=== PATIENT | female | born 1940 | race Caucasian/White ===

== ENCOUNTER 2016-05-04 10:44 | Outpatient (CLI) | payer MEDICARE, BC | END 2016-05-04 10:45 | disposition home or self-care (01) | DX: Z12.31 Encounter for screening mammogram for malignant neoplasm of breast (principal) ==

== ENCOUNTER 2016-07-07 07:21 | Outpatient (CLI) | payer MEDICARE, BC | END 2016-07-07 07:22 | disposition home or self-care (01) | DX: E78.5 Hyperlipidemia, unspecified (principal); R73.9 Hyperglycemia, unspecified; Z79.899 Other long term (current) drug therapy ==

== ENCOUNTER 2017-02-07 07:34 | Outpatient (CLI) | payer MEDICARE, BC ==
[2017-02-07 13:31] LABS: BASOPHILS # (AUTO) 0.1 10^3/uL (0.0-0.1); BASOPHILS % (AUTO) 1.4 %; EOSINOPHILS # (AUTO) 0.1 10^3/uL (0.0-0.7); HCT - HEMATOCRIT 39.4 % (37.0-47.0); HGB - HEMOGLOBIN 12.9 g/dL (12.0-16.0); LYMPHOCYTES # (AUTO) 1.6 10^3/uL (1.5-3.5); LYMPHOCYTES % (AUTO) 32.7 %; MEAN CORPUSCULAR HEMOGLOBIN 27.2 pg (27.0-31.0); MEAN CORPUSCULAR HGB CONC 32.8 g/dL (32.0-36.0); MEAN CORPUSCULAR VOLUME 82.9 fL (81.0-99.0); MEAN PLATELET VOLUME 8.2 fL (7.9-10.8); MONOCYTES # (AUTO) 0.4 10^3/uL (0.0-1.0); MONOCYTES % (AUTO) 8.8 %; NEUTROPHILS # (AUTO) 2.6 10^3/uL (1.5-6.6); NEUTROPHILS % (AUTO) 54.1 %; NUCLEATED RED BLOOD CELLS AUTO 0.1 /100WBC; RED BLOOD COUNT 4.75 10^6/uL (4.20-5.40); UNCORRECTED WHITE BLOOD COUNT 4.8 x10^3/uL; WHITE BLOOD COUNT 4.8 x10^3/uL (4.8-10.8)
[2017-02-07 13:46] LABS: ALBUMIN/GLOBULIN RATIO 1.3 (1.0-2.2); BILIRUBIN,TOTAL 0.6 mg/dL (0.2-1.0); BUN - BLOOD UREA NITROGEN 24 mg/dL (6-20); CALCIUM 8.9 mg/dL (8.5-10.3); CARBON DIOXIDE - CO2 24 mmol/L (21-32); CHLORIDE 110 mmol/L (101-111); CHOL/HDL RATIO 2.3 (<4.4); CHOLESTEROL 190 mg/dL; CREATININE 1.1 mg/dL (0.4-1.0); GFR - MDRD 48 (>89); GLUCOSE 95 mg/dL (70-100); HDL CHOLESTEROL 81 mg/dL; SODIUM 140 mmol/L (135-145); TRIGLYCERIDES 134 mg/dL; VLDL CHOLESTEROL 27 mg/dL
[2017-02-07 14:17] LABS: HEMOGLOBIN A1C 0.46 g/dL
== END 2017-02-07 07:35 | disposition home or self-care (01) ==
LOC: LAB.WCP 07:34
PROVIDERS: ATTEND Family Medicine
DX: R05 Cough (principal); R73.9 Hyperglycemia, unspecified; Z79.899 Other long term (current) drug therapy; D64.9 Anemia, unspecified; E78.5 Hyperlipidemia, unspecified; E55.9 Vitamin D deficiency, unspecified
CPT/HCPCS: 36415; 80053; 80061; 82306; 83036; 84443; 85025

== ENCOUNTER 2017-06-07 10:52 | Outpatient (CLI) | payer MEDICARE, BC ==
--- NOTE | 2017-06-08 12:24 | Mammography Report ---
DIGITAL SCREENING MAMMOGRAM; 06/07/2017 CLINICAL INDICATION: A 76-year-old, for screening. COMPARISON: 04/2016, 03/2015, 10/2011, 10/2010. TECHNIQUE: Routine CC and MLO projections were obtained of the breasts. FINDINGS: The breasts demonstrate scattered fibroglandular densities bilaterally. Coarse and punctate, typically benign calcifications are present. No suspicious masses, clustered microcalcifications, or regions of architectural distortion are identified. IMPRESSION: BENIGN FINDINGS. RECOMMENDATION: ROUTINE ANNUAL SCREENING UNLESS OTHERWISE CLINICALLY INDICATED. BIRADS CATEGORY 2-BENIGN FINDINGS. STANDARD QUALIFYING STATEMENTS: 1. This examination was reviewed with the aid of Computer-Aided Detection (CAD). 2. A negative or benign imaging report should not delay biopsy if clinically suspicious findings are present. Consider surgical consultation if warranted. More than 5% of cancers are not identified by imaging. 3. Dense breasts may obscure an underlying neoplasm. TD: 06/08/2017 12:23
== END 2017-06-07 10:53 | disposition home or self-care (01) ==
LOC: DI.N 10:52
PROVIDERS: ATTEND Family Medicine
DX: Z12.31 Encounter for screening mammogram for malignant neoplasm of breast (principal)
CPT/HCPCS: 77067

== ENCOUNTER 2017-07-05 09:41 | Outpatient (CLI) | payer MEDICARE, BC ==
[2017-07-05 12:50] LABS: BASOPHILS # (AUTO) 0.1 10^3/uL (0.0-0.1); BASOPHILS % (AUTO) 0.9 %; EOSINOPHILS # (AUTO) 0.1 10^3/uL (0.0-0.7); EOSINOPHILS % (AUTO) 1.1 %; HGB - HEMOGLOBIN 13.5 g/dL (12.0-16.0); LYMPHOCYTES # (AUTO) 1.3 10^3/uL (1.5-3.5); LYMPHOCYTES % (AUTO) 21.4 %; MEAN CORPUSCULAR HGB CONC 32.7 g/dL (32.0-36.0); MEAN CORPUSCULAR VOLUME 82.7 fL (81.0-99.0); MEAN PLATELET VOLUME 8.1 fL (7.9-10.8); MONOCYTES # (AUTO) 0.5 10^3/uL (0.0-1.0); MONOCYTES % (AUTO) 8.2 %; NEUTROPHILS # (AUTO) 4.1 10^3/uL (1.5-6.6); NEUTROPHILS % (AUTO) 68.4 %; PLT - PLATELET COUNT 215 10^3/uL (130-450); RED BLOOD COUNT 4.98 10^6/uL (4.20-5.40); RED CELL DISTRIBUTION WIDTH 14.1 % (12.0-15.0); WHITE BLOOD COUNT 5.9 x10^3/uL (4.8-10.8)
[2017-07-05 13:20] LABS: ALBUMIN 3.8 g/dL (3.2-5.5); ALBUMIN/GLOBULIN RATIO 1.3 (1.0-2.2); BILIRUBIN,TOTAL 0.7 mg/dL (0.2-1.0); CALCIUM 9.2 mg/dL (8.5-10.3); CREATININE 1.1 mg/dL (0.4-1.0); TOTAL PROTEIN 6.8 g/dL (6.7-8.2)
== END 2017-07-05 09:42 | disposition home or self-care (01) ==
LOC: LAB.WCP 09:41
PROVIDERS: ATTEND Physician Assistant Medical
DX: R19.7 Diarrhea, unspecified (principal)
CPT/HCPCS: 36415; 80053; 83690; 85025

== ENCOUNTER 2018-03-31 10:27 | Emergency (ER) | payer MEDICARE, BC ==
--- NOTE | 2018-03-31 12:24 | ED Physician Documentation ---
PD HPI LOWER EXT INJURY - Stated complaint Stated Complaint: GLF/L KNEE PX - Chief complaint Chief Complaint: Neuro - History obtained from History obtained from: Patient - History of Present Illness PD HPI LOW EXT INJURY LOCATION: Left, Knee Where injury occurred: Other (store) Worsened by: Other (weight bearing) Associated symptoms: Swelling. No: Weakness, Numbness - Additional information Additional information: ,Patient is a 77-year-old female who was shopping at the [employer] store in [place] this morning when she tripped over a yellow cone, landing onto her knees. She presents now with pain in her both knees, but left much more than right.. She has been ambulatory since the incident occurred, which was about 2 hours prior to arrival. Past medical history is significant for left femur fracture, for which she has an intramedullary manuel placement. Review of Systems Constitutional: denies: Fever Ears: denies: Tinnitus/ringing Nose: denies: Congestion Throat: denies: Sore throat Cardiac: denies: Chest pain / pressure Respiratory: denies: Dyspnea, Cough GI: denies: Nausea, Vomiting : denies: Dysuria Skin: denies: Rash Musculoskeletal: reports: Joint pain (left knee) Neurologic: denies: Focal weakness, Numbness, Headache, Head injury PD PAST MEDICAL HISTORY - Past Medical History Past Medical History: Yes Cardiovascular: None Respiratory: Asthma Endocrine/Autoimmune: None GI: Hepatitis : None HEENT: None Psych: None Musculoskeletal: None Derm: None - Past Surgical History Past Surgical History: Yes General: Colonoscopy Ortho: Other - Present Medications Home Medications: Ambulatory Orders Medication Instructions Recorded Confirmed Budesonide [Pulmicort] 1 puffs INH BID 11/28/12 07/11/14 Calcium Carbonate [Calcium] 600 mg PO DAILY 01/23/13 07/11/14 Cholecalciferol (Vitamin D3) 1,000 unit PO DAILY 01/23/13 07/11/14 [Vitamin D] Multivitamin [Multivitamins] 1 each PO DAILY 01/23/13 07/11/14 Pravastatin Sodium 20 mg PO DAILY 01/23/13 07/11/14 - Allergies Allergies/Adverse Reactions: Allergies Allergy/AdvReac Type Severity Reaction Status Date / Time No Known Drug Allergies Allergy Verified 03/31/18 10:50 - Social History Does the pt smoke?: No Smoking Status: Never smoker Does the pt drink ETOH?: No Does the pt have substance abuse?: No PD ED PE NORMAL - Vitals Vital signs reviewed: Yes (normal) - General General: Alert and oriented X 3, Well developed/nourished - HEENT HEENT: Atraumatic - Neck Neck: No bony TTP, Other (Full cervical range of motion, without tenderness.) - Cardiac Cardiac: RRR, No murmur - Respiratory Respiratory: No respiratory distress - Back Back: No spinal TTP - Derm Derm: No rash - Extremities Extremities: Other (There is ecchymosis at the infrapatellar aspect of the left knee, with associated tenderness to palpation. She can fully extend the knee and can flex it to 90 degrees, although flexion exacerbates the discomfort. There is no break in the integument. There is no tenderness to palpation along the medial or lateral joint lines, or in the popliteal fossa. There is tenderness to palpation over the patellar region. There is no ligamentous instability detected. Distal neurovascular is intact.) - Neuro Neuro: Alert and oriented X 3, No motor deficit, No sensory deficit Results - Vitals Vitals: Oxygen O2 Source Room air - Rads (name of study) left knee Radiology: Prelim report reviewed, EMP read contemporaneously, See rad report (Interval changes in the distal femoral metaphysis, suggestive of possible surgical intervention. No acute fracture or dislocation is identified.) PD MEDICAL DECISION MAKING - ED course Complexity details: reviewed results, re-evaluated patient, considered differential, d/w patient ED course: The patient's presentation is most consistent with contusion to her knees, particularly the left knee, which also has ecchymosis/hematoma. X-ray reveals n o evidence of acute bony injury. I discussed with her the expected course of healing, symptomatic treatment and outpatient follow-up, as well as potentially worrisome signs or symptoms that should prompt reevaluation in the emergency department. Departure - Departure Disposition: 01 Home, Self Care Clinical Impression: Contusion of left knee Qualifiers: Encounter type: initial encounter Qualified Code(s): S80.02XA - Contusion of left knee, initial encounter Fall Qualifiers: Encounter type: initial encounter Qualified Code(s): W19.XXXA - Unspecified fall, initial encounter Condition: Stable Instructions: ED Contusion Lower Ext, ED Hematoma Follow-Up: Yani Parker PA-C [Primary Care Provider] - Comments: Apply ice pack to your knee intermittently for the next 3 or 4 days. Keep your left leg elevated as much the time as possible. You can use ibuprofen, up to 800 mg 3 times daily if needed for discomfort. Let pain be your guide to activity level. Follow-up with your primary physician within 2 weeks if not completely resolved. Return to the emergency department if you develop markedly increasing pain, swelling, or otherwise worsening. Discharge Date/Time: 03/31/18 14:24
--- NOTE | 2018-03-31 13:39 | XRAY Report ---
Reason: left knee injury Procedure Date: 03/31/2018 Accession Number: [id number] / [id number] Procedure: XR - Knee 3 View LT CPT Code: FULL RESULT: EXAM: LEFT KNEE RADIOGRAPHY EXAM DATE: 03/31/2018 12:59 PM. CLINICAL HISTORY: Left knee injury. COMPARISON: XR KNEE 3 VIEW 01/20/2007 11:19 AM. TECHNIQUE: 3 views. FINDINGS: Bones: Interval changes in the distal femoral metadiaphysis suggestive of possible surgical intervention. Correlate to history, possibly ACL repair. No acute fracture or dislocation is identified. Joints: Normal. No effusion. No subluxations. Soft Tissues: Prominence of prepatellar soft tissues. IMPRESSION: Correlate intraosseous finding at the femoral metadiaphysis to possible interval surgical history. RADIA
[2018-03-31 14:26] VITALS: BP 142/74
== END 2018-03-31 14:24 | disposition home or self-care (01) ==
LOC: ED 10:27
DX: S80.02XA Contusion of left knee, initial encounter (principal); S80.01XA Contusion of right knee, initial encounter; W01.0XXA Fall on same level from slipping, tripping and stumbling without subsequent striking against object, initial encounter; Y93.89 Activity, other specified; Y92.512 Supermarket, store or market as the place of occurrence of the external cause; Z87.81 Personal history of (healed) traumatic fracture
CPT/HCPCS: 99282; 99283

== ENCOUNTER 2018-04-12 10:22 | Outpatient (CLI) | payer MEDICARE, BC ==
[2018-04-12 13:13] LABS: CALCIUM 9.2 mg/dL (8.5-10.3)
[2018-04-12 15:45] LABS: HB2 TOTAL 12.9 g/dL; HEMOGLOBIN A1C 0.41 g/dL; HEMOGLOBIN A1C % 5.1 % (4.6-6.2)
== END 2018-04-12 10:23 | disposition home or self-care (01) ==
LOC: LAB.WCP 10:22
PROVIDERS: ATTEND Physician Assistant Medical
DX: R73.9 Hyperglycemia, unspecified (principal); E55.9 Vitamin D deficiency, unspecified; D64.9 Anemia, unspecified; E78.5 Hyperlipidemia, unspecified
CPT/HCPCS: 36415; 80048; 82306; 83036

== ENCOUNTER 2018-04-20 08:30 | Outpatient (CLI) | payer MEDICARE, BC ==
[2018-04-20 14:44] LABS: CHOL/HDL RATIO 2.5 (<4.4); CHOLESTEROL 171 mg/dL; HDL CHOLESTEROL 69 mg/dL; LDL CHOLESTEROL,CALCULATED 85 mg/dL; LDL/HDL RATIO 1.2 (<4.4); VLDL CHOLESTEROL 17 mg/dL
== END 2018-04-20 08:31 | disposition home or self-care (01) ==
LOC: LAB.WCP 08:30
PROVIDERS: ATTEND Physician Assistant Medical
DX: E78.5 Hyperlipidemia, unspecified (principal)
CPT/HCPCS: 36415; 80061; 83721

== ENCOUNTER 2019-03-29 09:05 | Outpatient (CLI) | payer MEDICARE, BC ==
--- NOTE | 2019-03-30 10:12 | DEXA Report ---
Reason: OSETEOPOROSIS Procedure Date: 03/29/2019 Accession Number: [id number] / [id number] Procedure: DEX - Dexa Spine and/or Hip CPT Code: Final Report FULL RESULT: EXAM: Dexa Spine and/or Hip DATE: 03/29/2019 9:38 AM CLINICAL HISTORY: OSETEOPOROSIS TECHNIQUE: Dual energy x-ray absorptiometry (DXA) was performed on a [employer] System. Regions measured are the AP Spine, femoral neck, and if needed forearm. COMPARISON: None. In accordance with the International Society for Clinical Densitometry (ISCD) guidelines, data from previous exams may be reanalyzed using current recommendations and techniques. This is done to allow a more accurate basis for comparison with the current study. FINDINGS: The data for the lumbar spine is as follows: BMD (g/cm/cm) T-SCORE Z-SCORE REGION L1 1.247 1.0 2.1 L2 1.252 0.4 1.6 L3 1.224 0.2 1.3 L4 1.422 1.8 3.0 TOTAL 1.292 0.9 2.1 NOTE: All evaluable vertebrae are used for classification The data for the hip is as follows: BMD (g/cm/cm) T-SCORE Z-SCORE REGION Neck 0.790 -1.8 -0.1 TOTAL 0.823 -1.5 0.0 NOTE: The femoral neck or total proximal femur, whichever is lowest, is used for classification. IMPRESSION: THE WHO CLASSIFICATION BASED ON THE INTERNATIONAL REFERENCE STANDARD IS OSTEOPENIA. THE FRACTURE RISK IS INCREASED. RECOMMENDATION: Patients with diagnosis of osteoporosis or osteopenia should have regular bone mineral density assessment. For those eligible for Medicare, routine testing is allowed once every 2 years. Testing frequency can be increased for patients who have rapidly progressing disease or for those who are receiving medical therapy to restore bone mass. COMMENT: World Health Organization (WHO) definitions for osteoporosis and osteopenia: NORMAL BMD: T-score at -1.0 or higher, fracture risk is low OSTEOPENIA BMD: T-score between -1.0 and -2.5, fracture risk is increased. OSTEOPOROSIS BMD: T-score at -2.5 or lower, fracture risk is high. National Osteoporosis Foundation recommends: 1. Obtain adequate dietary calcium (at least 1200 mg per day) and vitamin D (400-800 international units per day). 2. Participate, as appropriate, in regular weightbearing and muscle-strengthening exercise. 3. Avoid tobacco use and reduce alcohol and caffeine intake. 4. For more detailed information see the website at www.NOF.org.
== END 2019-03-29 09:06 | disposition home or self-care (01) ==
LOC: DI 09:05
PROVIDERS: ATTEND Registered Nurse
DX: M85.88 Other specified disorders of bone density and structure, other site (principal)
CPT/HCPCS: 77080

== ENCOUNTER 2020-03-05 07:57 | Outpatient (CLI) | payer MEDICARE, BC ==
[2020-03-05 14:33] LABS: BASOPHILS # (AUTO) 0.1 10^3/uL (0.0-0.1); BASOPHILS % (AUTO) 1.3 %; EOSINOPHILS # (AUTO) 0.1 10^3/uL (0.0-0.7); EOSINOPHILS % (AUTO) 2.6 %; HGB - HEMOGLOBIN 13.3 g/dL (12.0-16.0); LYMPHOCYTES # (AUTO) 1.4 10^3/uL (1.5-3.5); LYMPHOCYTES % (AUTO) 29.5 %; MEAN CORPUSCULAR HEMOGLOBIN 26.8 pg (27.0-31.0); MEAN CORPUSCULAR HGB CONC 30.4 g/dL (32.0-36.0); MEAN CORPUSCULAR VOLUME 88.3 fL (81.0-99.0); MEAN PLATELET VOLUME 10.3 fL (7.9-10.8); MONOCYTES # (AUTO) 0.5 10^3/uL (0.0-1.0); MONOCYTES % (AUTO) 9.8 %; NEUTROPHILS # (AUTO) 2.6 10^3/uL (1.5-6.6); NEUTROPHILS % (AUTO) 56.6 %; PLT - PLATELET COUNT 226 10^3/uL (130-450); RED BLOOD COUNT 4.96 10^6/uL (4.20-5.40); RED CELL DISTRIBUTION WIDTH 13.9 % (12.0-15.0); WHITE BLOOD COUNT 4.6 x10^3/uL (4.8-10.8)
[2020-03-05 15:48] LABS: ALBUMIN 3.9 g/dL (3.2-5.5); ALBUMIN/GLOBULIN RATIO 1.3 (1.0-2.2); ALKALINE PHOSPHATASE 61 IU/L (42-121); ALT ALANINE AMINOTRANSFERASE 20 IU/L (10-60); AST ASPARTATE AMINOTRANSFERASE 29 IU/L (10-42); BILIRUBIN,TOTAL 0.8 mg/dL (0.2-1.0); BUN - BLOOD UREA NITROGEN 22 mg/dL (6-20); CARBON DIOXIDE - CO2 24 mmol/L (21-32); CHLORIDE 109 mmol/L (101-111); CHOL/HDL RATIO 2.7 (<4.4); CHOLESTEROL 188 mg/dL; CREATININE 1.1 mg/dL (0.4-1.0); GLUCOSE 94 mg/dL (70-100); HDL CHOLESTEROL 70 mg/dL; LDL CHOLESTEROL,CALCULATED 94 mg/dL; LDL/HDL RATIO 1.3 (<4.4); SODIUM 140 mmol/L (135-145); TOTAL PROTEIN 6.8 g/dL (6.7-8.2); VLDL CHOLESTEROL 24 mg/dL
== END 2020-03-05 07:58 | disposition home or self-care (01) ==
LOC: LAB.S 07:57
PROVIDERS: ATTEND Registered Nurse
DX: R73.9 Hyperglycemia, unspecified (principal); F32.9 Major depressive disorder, single episode, unspecified; E55.9 Vitamin D deficiency, unspecified; E78.5 Hyperlipidemia, unspecified; J45.909 Unspecified asthma, uncomplicated
CPT/HCPCS: 36415; 80053; 80061; 82306; 83721; 84443; 85025

== ENCOUNTER 2020-08-01 08:00 | Outpatient (CLI) | payer MEDICARE, BC | END 2020-08-01 23:59 | disposition home or self-care (01) | LOC: LAB.S 08:00 | PROVIDERS: ATTEND Emergency Medicine | DX: L72.3 Sebaceous cyst (principal) | CPT/HCPCS: 87070; 87181; 87205 ==

== ENCOUNTER 2020-08-21 08:00 | Outpatient (CLI) | payer MEDICARE, BC | END 2020-08-21 23:59 | disposition home or self-care (01) | LOC: LAB.S 08:00 | PROVIDERS: ATTEND Emergency Medicine | DX: L72.3 Sebaceous cyst (principal) | CPT/HCPCS: 81599; 87070; 87076; 87181; 87205 ==

== ENCOUNTER 2020-09-07 14:19 | Outpatient (CLI) | payer MEDICARE, BC ==
[2020-09-07 18:22] LABS: BASOPHILS # (AUTO) 0.1 10^3/uL (0.0-0.1); BASOPHILS % (AUTO) 1.3 %; EOSINOPHILS # (AUTO) 0.1 10^3/uL (0.0-0.7); EOSINOPHILS % (AUTO) 2.2 %; HCT - HEMATOCRIT 43.8 % (37.0-47.0); HGB - HEMOGLOBIN 13.4 g/dL (12.0-16.0); LYMPHOCYTES # (AUTO) 1.7 10^3/uL (1.5-3.5); LYMPHOCYTES % (AUTO) 32.4 %; MEAN CORPUSCULAR HEMOGLOBIN 27.2 pg (27.0-31.0); MEAN CORPUSCULAR HGB CONC 30.6 g/dL (32.0-36.0); MEAN PLATELET VOLUME 9.8 fL (7.9-10.8); MONOCYTES # (AUTO) 0.6 10^3/uL (0.0-1.0); MONOCYTES % (AUTO) 10.3 %; NEUTROPHILS # (AUTO) 2.9 10^3/uL (1.5-6.6); NEUTROPHILS % (AUTO) 53.4 %; PLT - PLATELET COUNT 247 10^3/uL (130-450); RED BLOOD COUNT 4.92 10^6/uL (4.20-5.40); RED CELL DISTRIBUTION WIDTH 14.3 % (12.0-15.0); WHITE BLOOD COUNT 5.3 x10^3/uL (4.8-10.8)
[2020-09-07 18:35] LABS: ALBUMIN 4.1 g/dL (3.2-5.5); ALBUMIN/GLOBULIN RATIO 1.3 (1.0-2.2); BILIRUBIN,TOTAL 0.8 mg/dL (0.2-1.0); CALCIUM 9.5 mg/dL (8.5-10.3); CREATININE 1.1 mg/dL (0.4-1.0); POTASSIUM 4.4 mmol/L (3.5-5.0); TOTAL PROTEIN 7.3 g/dL (6.7-8.2)
== END 2020-09-07 14:20 | disposition home or self-care (01) ==
LOC: LAB.S 14:19
PROVIDERS: ATTEND Internal Medicine
DX: Z79.899 Other long term (current) drug therapy (principal); E55.9 Vitamin D deficiency, unspecified
CPT/HCPCS: 36415; 80053; 82306; 85025

== ENCOUNTER 2021-03-18 07:59 | Outpatient (CLI) | payer MEDICARE, BC ==
[2021-03-18 15:19] LABS: HCT - HEMATOCRIT 46.5 % (37.0-47.0); HGB - HEMOGLOBIN 14.2 g/dL (12.0-16.0); MEAN CORPUSCULAR HEMOGLOBIN 26.9 pg (27.0-31.0); MEAN CORPUSCULAR HGB CONC 30.5 g/dL (32.0-36.0); MEAN CORPUSCULAR VOLUME 88.1 fL (81.0-99.0); MEAN PLATELET VOLUME 11.6 fL (7.9-10.8); PLT - PLATELET COUNT 145 10^3/uL (130-450); RED BLOOD COUNT 5.28 10^6/uL (4.20-5.40); WHITE BLOOD COUNT 4.5 x10^3/uL (4.8-10.8)
[2021-03-18 15:27] LABS: BASOPHILS % (AUTO) 1.1 %; EOSINOPHILS % (AUTO) 3.2 %; LYMPHOCYTES # (AUTO) 1.4 10^3/uL (1.5-3.5); LYMPHOCYTES % (AUTO) 32.1 %; MONOCYTES # (AUTO) 0.4 10^3/uL (0.0-1.0); MONOCYTES % (AUTO) 9.3 %; NEUTROPHILS # (AUTO) 2.4 10^3/uL (1.5-6.6); NEUTROPHILS % (AUTO) 54.1 %
[2021-03-18 15:28] LABS: EOSINOPHILS # (AUTO) 0.1 10^3/uL (0.0-0.7)
[2021-03-18 16:06] LABS: ALBUMIN 3.9 g/dL (3.2-5.5); ALBUMIN/GLOBULIN RATIO 1.3 (1.0-2.2); ALKALINE PHOSPHATASE 59 IU/L (42-121); ALT ALANINE AMINOTRANSFERASE 20 IU/L (10-60); AST ASPARTATE AMINOTRANSFERASE 32 IU/L (10-42); BILIRUBIN,TOTAL 0.8 mg/dL (0.2-1.0); BUN - BLOOD UREA NITROGEN 23 mg/dL (6-20); CALCIUM 9.1 mg/dL (8.5-10.3); CARBON DIOXIDE - CO2 24 mmol/L (21-32); CHLORIDE 106 mmol/L (101-111); CHOL/HDL RATIO 2.7 (<4.4); CHOLESTEROL 180 mg/dL; CREATININE 1.2 mg/dL (0.4-1.0); GFR - MDRD 43 (>89); GLUCOSE 97 mg/dL (70-100); HDL CHOLESTEROL 66 mg/dL; LDL CHOLESTEROL,CALCULATED 84 mg/dL; LDL/HDL RATIO 1.3 (<4.4); POTASSIUM 4.3 mmol/L (3.5-5.0); SODIUM 138 mmol/L (135-145); TRIGLYCERIDES 149 mg/dL; VLDL CHOLESTEROL 30 mg/dL
== END 2021-03-18 08:00 | disposition home or self-care (01) ==
LOC: LAB.S 07:59
PROVIDERS: ATTEND Internal Medicine
DX: E55.9 Vitamin D deficiency, unspecified (principal); Z79.899 Other long term (current) drug therapy; E78.5 Hyperlipidemia, unspecified
CPT/HCPCS: 36415; 80053; 80061; 83721; 85025

== ENCOUNTER 2021-03-30 08:00 | Outpatient (CLI) | payer MEDICARE, BC ==
[2021-03-30 16:41] LABS: FECAL OCCULT BLOOD (FIT) NEGATIVE (NEGATIVE)
== END 2021-03-30 23:59 ==
LOC: LAB.F 08:00
PROVIDERS: ATTEND Internal Medicine
DX: Z12.11 Encounter for screening for malignant neoplasm of colon (principal)
CPT/HCPCS: 82274

== ENCOUNTER 2022-04-29 07:27 | Outpatient (CLI) | payer MEDICARE, BC ==
[2022-04-29 14:53] LABS: ALBUMIN 3.9 g/dL (3.2-5.5); ALBUMIN/GLOBULIN RATIO 1.3 (1.0-2.2); ALKALINE PHOSPHATASE 65 IU/L (42-121); ALT ALANINE AMINOTRANSFERASE 20 IU/L (10-60); AST ASPARTATE AMINOTRANSFERASE 29 IU/L (10-42); BILIRUBIN,TOTAL 0.8 mg/dL (0.2-1.0); BUN - BLOOD UREA NITROGEN 23 mg/dL (6-20); CALCIUM 9.3 mg/dL (8.5-10.3); CARBON DIOXIDE - CO2 27 mmol/L (21-32); CHLORIDE 109 mmol/L (101-111); CHOL/HDL RATIO 2.6 (<4.4); CHOLESTEROL 175 mg/dL; CREATININE 1.2 mg/dL (0.4-1.0); GFR - MDRD 43 (>89); GLUCOSE 97 mg/dL (70-100); HDL CHOLESTEROL 67 mg/dL; LDL CHOLESTEROL,CALCULATED 70 mg/dL; POTASSIUM 4.4 mmol/L (3.5-5.0); SODIUM 144 mmol/L (135-145); TOTAL PROTEIN 6.8 g/dL (6.7-8.2); TRIGLYCERIDES 192 mg/dL; VLDL CHOLESTEROL 38 mg/dL
[2022-04-29 22:27] LABS: ESTIMATED AVERAGE GLUCOSE 114 mg/dL (70-100); HEMOGLOBIN A1c% 5.6 % (4.27-6.07)
== END 2022-04-29 07:28 | disposition home or self-care (01) ==
LOC: LAB.S 07:27
PROVIDERS: ATTEND Nurse Practitioner Family
DX: E78.5 Hyperlipidemia, unspecified (principal); E66.9 Obesity, unspecified; Z79.899 Other long term (current) drug therapy
CPT/HCPCS: 36415; 80053; 80061; 83036; 83721

== ENCOUNTER 2022-05-10 12:56 | Outpatient (CLI) | payer MEDICARE, BC ==
--- NOTE | 2022-05-11 10:37 | Mammography Report ---
BILATERAL DIGITAL SCREENING MAMMOGRAM 3D/2D: 05/10/2022 CLINICAL: Routine screening. Comparison is made to exams dated: 06/07/2017 mammogram, 05/04/2016 mammogram, and 04/16/2015 mammogram - [facility]. There are scattered areas of fibroglandular density in both breasts (category b / 25%-50% glandular t issue). There is a new mass in the left breast at 1 o'clock posterior depth. There is architectural distorti on associated with the mass. Bilateral benign vascular calcifications. No other significant masses, calcifications, or other findi ngs are seen in either breast. IMPRESSION: INCOMPLETE: NEEDS ADDITIONAL IMAGING EVALUATION The new mass in the left breast is indeterminate. Additional views with possible ultrasound are recommended. Based on the Tyrer Cuzick model (a risk assessment model) the patients lifetime risk is 0.7% and her 10 year risk is 0.0%. According to the ACR, ACS, and NCCN guidelines, an annual breast MRI exam angelica g with mammogram is recommended if the patients lifetime risk is 20% or greater. This exam was interpreted at Station ID: [id number]. NOTE: For mammograms, a report in lay terms will be sent to the patient. Approximately 15% of breast malignancies will not be visualized mammographically. In the management of a palpable breast mass, a negative mammogram must not discourage biopsy of a clinically suspicious lesion. Electronically Signed By: Jam Ware M.D. slc/:05/10/2022 17:49:57 ACR BI-RADS Category 0: Incomplete 3340F PARENCHYMAL PATTERN: (A) - The breast(s) demonstrate(s) scattered fibroglandular densities. BI-RADS CATEGORY: (0) - 0 Mammo and [place] [id number] Immediate follow-up LATERALITY: (B)
== END 2022-05-10 12:57 | disposition home or self-care (01) ==
LOC: DI.S 12:56
DX: Z12.31 Encounter for screening mammogram for malignant neoplasm of breast (principal); N63.21 Unspecified lump in the left breast, upper outer quadrant

== ENCOUNTER 2022-05-27 10:40 | Outpatient (CLI) | payer MEDICARE, BC ==
--- NOTE | 2022-05-28 09:39 | Ultrasound Report ---
LIMITED ULTRASOUND OF LEFT BREAST AND AXILLA: 05/27/2022 CLINICAL: Patient returns today to evaluate an architectural distortion in the left breast. Comparison is made to exams dated: 05/10/2022 mammogram, 05/27/2022 mammogram, and 06/07/2017 mammogram - [facility]. Color flow and real-time ultrasound of the left breast 1 o'clock, and axilla regions were performed. Rajan scale images of the real-time examination were reviewed. There is a 1.4 cm x 1 cm x 0.9 cm irregular mass with a microlobulated and angular margin in the left breast at 1 o'clock middle depth 4 cm from the nipple. This irregular mass is hypoechoic with poste rior acoustic shadowing. This correlates with mammography findings. Color flow imaging demonstrates that there is vascularity present. No significant abnormalities were seen sonographically in the left axilla. IMPRESSION: SUSPICIOUS OF MALIGNANCY The 1.4 cm irregular mass in the left breast is at a moderate suspicion for malignancy. An ultrasoun d guided biopsy is recommended. Findings and recommendations were discussed with the patient in pers on by Dr. Boyd at time of exam. This exam was interpreted at Station ID: [id number]. Electronically Signed By: Nancy tyler/:05/27/2022 12:19:19 Ultrasound BI-RADS: 4b Moderate suspicion of malignancy BI-RADS CATEGORY: (4b) - Mod Susp Biopsy [id number] Immediate follow-up LATERALITY: (L)
--- NOTE | 2022-05-28 09:39 | Mammography Report ---
UNILATERAL LEFT DIGITAL DIAGNOSTIC MAMMOGRAM 3D/2D: 05/27/2022 CLINICAL: Patient returns for additional imaging over a suspected mass in the left breast. Comparison is made to exams dated: 06/07/2017 mammogram, 05/04/2016 mammogram, 04/16/2015 mammogram, and 11/22/2011 mammogram - [facility]. There are scattered areas of fibroglandular density in the left breast (category b / 25%-50% glandula r tissue). There is a new 1.3 cm x 1.6 cm irregular high density mass with a spiculated and microlobulated chaparro n in the left breast at 1 o'clock middle depth 9 cm from the nipple. This is seen in additional view s. There is architectural distortion associated with the mass. No other significant masses or calcifications are seen in the breast. IMPRESSION: INCOMPLETE: NEEDS ADDITIONAL IMAGING EVALUATION The new 1.3 cm x 1.6 cm irregular high density mass in the left breast is suspicious. An ultrasound i s recommended. This was performed immediately following this exam. Based on the Tyrer Cuzick model (a risk assessment model) the patients lifetime risk is 0.7% and her 10 year risk is 0.0%. According to the ACR, ACS, and NCCN guidelines, an annual breast MRI exam angelica g with mammogram is recommended if the patients lifetime risk is 20% or greater. This exam was interpreted at Station ID: [id number]. NOTE: For mammograms, a report in lay terms will be sent to the patient. Approximately 15% of breast malignancies will not be visualized mammographically. In the management of a palpable breast mass, a negative mammogram must not discourage biopsy of a clinically suspicious lesion. Electronically Signed By: Nancy tyler/:05/27/2022 11:35:11 ACR BI-RADS Category 0: Incomplete 3340F PARENCHYMAL PATTERN: (A) - The breast(s) demonstrate(s) scattered fibroglandular densities. BI-RADS CATEGORY: (0) - 0 Ultrasound [id number] Immediate follow-up LATERALITY: (B)
== END 2022-05-27 10:41 | disposition home or self-care (01) ==
LOC: DI 10:40
PROVIDERS: ATTEND Family Medicine
DX: N63.21 Unspecified lump in the left breast, upper outer quadrant (principal)

== ENCOUNTER 2022-06-16 10:11 | Outpatient (CLI) | payer MEDICARE, BC ==
[2022-06-16] MEDS ORDERED: LIDOCAINE-MPF 1% 5 ML VIAL ONE (10:15)
[2022-06-16] MEDS ORDERED: LIDOCAINE 1%-EPI 1:100000 20 ML MDV ONE (10:15)
[2022-06-16] MEDS ORDERED: LIDOCAINE-MPF 1% 5 ML VIAL TD ONE (12:08)
[2022-06-16] MEDS ORDERED: LIDOCAINE 1%-EPI 1:100000 20 ML MDV SUBQ ONE (12:08)
--- NOTE | 2022-06-17 12:13 | Mammography Report ---
UNILATERAL LEFT DIGITAL DIAGNOSTIC MAMMOGRAM POST-PROCEDURE IMAGING FOR MARKER PLACEMENT: 06/16/2022 CLINICAL: Post left breast ultrasound biopsy clip placement imaging. Comparison is made to exams dated: 05/27/2022 mammogram, 05/10/2022 mammogram, 06/07/2017 mammogram, 05/04/2016 mammogram, 04/16/2015 mammogram, and 11/22/2011 mammogram - [facility]. There are scattered areas of fibroglandular density in the left breast (category b / 25%-50% glandula r tissue). There is a marker clip in the appropriate position in the left breast at 1 o'clock middle depth. Thi s marker clip placement is at the biopsy site. IMPRESSION: POST PROCEDURE MAMMOGRAM FOR MARKER PLACEMENT There was a successful marker clip placement in the left breast middle depth. Based on the Tyrer Cuzick model (a risk assessment model) the patients lifetime risk is 0.7% and her 10 year risk is 0.0%. According to the ACR, ACS, and NCCN guidelines, an annual breast MRI exam angelica g with mammogram is recommended if the patients lifetime risk is 20% or greater. This exam was interpreted at Station ID: [id number]. NOTE: For mammograms, a report in lay terms will be sent to the patient. Approximately 15% of breast malignancies will not be visualized mammographically. In the management of a palpable breast mass, a negative mammogram must not discourage biopsy of a clinically suspicious lesion. Electronically Signed By: Glory wheat/penrad:06/16/2022 12:46:39 ACR BI-RADS Category Post-procedure mammogram for marker placement PARENCHYMAL PATTERN: (A) - The breast(s) demonstrate(s) scattered fibroglandular densities. BI-RADS CATEGORY: () - Unspecified - other recall n/a LATERALITY: (B)
--- NOTE | 2022-06-21 11:36 | Ultrasound Report ---
ULTRASOUND GUIDED BIOPSY LEFT BREAST WITH MARKING DEVICE INSERTED AND POST DIGITAL MAMMOGRAPHIC AND U LTRASOUND IMAGIN06/16/2022 CLINICAL: Left breast mass. PATIENT CONSENT: Risks (minor bleeding, infection, vasovagal reaction and repeat procedure), benefits and alternatives were explained to the patient and written informed consent was obtained. Correlation is made to exams dated: 05/27/2022 ultrasound, 05/27/2022 mammogram, 05/10/2022 mammogram, 06/07/2017 mammogram, 05/04/2016 mammogram, and 04/16/2015 mammogram - [facility]. An ultrasound guided biopsy using real-time ultrasound was performed for the 1.4 cm x 1 cm x 0.9 cm i rregular shaped mass located in the left breast at 1 o'clock middle depth 4 cm from the nipple. The skin was prepped in the usual manner. Local anesthetic was administered to the access site. A small incision was made in the breast. The abnormality was approached from the lateral aspect. A biopsy needle was placed adjacent to the abnormality under ultrasound guidance. Once the needle was documen jacobo to be in the correct location, five specimens were obtained using an automated biopsy gun. The p atient received additional local anesthetic during the procedure. A clip was inserted into the biops y cavity. A sterile dressing was applied to the access site. Post procedure digital mammographic an d ultrasound imaging demonstrates the location device at the targeted area. The specimens were sent to the laboratory for pathological analysis. IMPRESSION: ULTRASOUND GUIDED BIOPSY MALIGNANT Ultrasound guided biopsy of the 1.4 cm x 1 cm x 0.9 cm mass in the left breast at 1 o'clock middle de pth 4 cm from the nipple was successful. Pathology indicates malignant invasive ductal carcinoma (ID ). Pathology results are concordant with imaging findings. A surgical/oncologic consultation is rec ommended. Results and recommendations will be communicated to the ordering provider's office. This exam was interpreted at Station ID: [id number]. jayson Concepcion M.D., M.D./:06/21/2022 09:13:18 BI-RADS CATEGORY: () - Unspecified - other recall n/a LATERALITY: (B)
== END 2022-06-16 10:12 | disposition home or self-care (01) ==
LOC: DI 10:11
PROVIDERS: ATTEND Nurse Practitioner Family
DX: C50.412 Malignant neoplasm of upper-outer quadrant of left female breast (principal); Z17.0 Estrogen receptor positive status [ER+]
CPT/HCPCS: 19083

== ENCOUNTER 2023-04-29 07:55 | Outpatient (CLI) | payer MEDICARE, BC ==
--- NOTE | 2023-05-02 10:14 | Mammography Report ---
BILATERAL DIGITAL DIAGNOSTIC MAMMOGRAM 3D/2D WITH TANGENTIAL - LEFT BREAST POST LUMPECTOMY: 04/29/2023 CLINICAL: Oncology follow up of left breast cancer. Due for bilateral exam. Comparison is made to exams dated: 06/16/2022 mammogram, 05/27/2022 mammogram, 05/10/2022 mammogram, 11/2017 mammogram, 05/04/2016 mammogram, and 04/16/2015 mammogram - [facility]. There are scattered areas of fibroglandular density in both breasts (category b / 25%-50% glandular t issue). There are benign vascular calcifications in both breasts. There also are benign post operative findi ngs in the left breast. No significant masses, calcifications, or other findings are seen in either breast. There has been no significant interval change. IMPRESSION: BENIGN There is no mammographic evidence of malignancy. A 1 year screening mammogram is recommended. This exam was interpreted at Station ID: [id number]. NOTE: For mammograms, a report in lay terms will be sent to the patient. Approximately 15% of breast malignancies will not be visualized mammographically. In the management of a palpable breast mass, a negative mammogram must not discourage biopsy of a clinically suspicious lesion. Electronically Signed By: Glory wheat/melvin:04/29/2023 08:39:49 letter sent: No_Letter ACR BI-RADS Category 2: Benign Finding(s) 3342F PARENCHYMAL PATTERN: (A) - The breast(s) demonstrate(s) scattered fibroglandular densities. BI-RADS CATEGORY: (2) - 2 RECOMMENDATION: (ANNUAL) - Recommend routine annual screening mammography. [id number] 1 year screening LATERALITY: (B)
== END 2023-04-29 07:56 | disposition home or self-care (01) ==
LOC: DI 07:55
PROVIDERS: ATTEND Internal Medicine Hematology & Oncology
DX: C50.919 Malignant neoplasm of unspecified site of unspecified female breast (principal); R92.323 Mammographic fibroglandular density, bilateral breasts; R92.1 Mammographic calcification found on diagnostic imaging of breast

== ENCOUNTER 2023-05-02 07:17 | Outpatient (CLI) | payer MEDICARE, BC ==
[2023-05-02 16:49] LABS: ALBUMIN/GLOBULIN RATIO 1.4 (1.0-2.2); ALKALINE PHOSPHATASE 64 IU/L (42-121); ALT ALANINE AMINOTRANSFERASE 15 IU/L (10-60); AST ASPARTATE AMINOTRANSFERASE 25 IU/L (10-42); BILIRUBIN,TOTAL 0.7 mg/dL (0.2-1.0); BUN - BLOOD UREA NITROGEN 20 mg/dL (6-20); CALCIUM 9.9 mg/dL (8.5-10.3); CARBON DIOXIDE - CO2 26 mmol/L (21-32); CHLORIDE 108 mmol/L (101-111); CHOL/HDL RATIO 2.4 (<4.4); CHOLESTEROL 173 mg/dL; CREATININE 1.2 mg/dL (0.6-1.3); GFR - MDRD 43 (>89); GLUCOSE 98 mg/dL (74-104); HDL CHOLESTEROL 71 mg/dL; LDL CHOLESTEROL,CALCULATED 68 mg/dL; POTASSIUM 4.3 mmol/L (3.5-4.5); SODIUM 139 mmol/L (135-145); TOTAL PROTEIN 6.8 g/dL (6.4-8.9); TRIGLYCERIDES 172 mg/dL (48-352); VLDL CHOLESTEROL 34 mg/dL
== END 2023-05-02 07:18 | disposition home or self-care (01) ==
LOC: LAB.S 07:17
PROVIDERS: ATTEND Nurse Practitioner Family
DX: E78.5 Hyperlipidemia, unspecified (principal); Z91.89 Other specified personal risk factors, not elsewhere classified
CPT/HCPCS: 36415; 80053; 80061; 83721